=== PATIENT | female | born 1965 | race Caucasian/White ===

== ENCOUNTER 2016-07-24 13:02 | Observation (INO) | payer BC ==
[2016-07-26 10:31] VITALS: RESP 16
[2016-07-26 10:57] LABS: Glucose,Whole Blood 79 mg/dL (75-99)
[2016-07-26] MEDS ORDERED: NALOXONE 0.4 MG/ML 1 ML VIAL IV PRN (11:34)
[2016-07-26] MEDS ORDERED: MELATONIN 3 MG TABLET PO PRN (11:34)
[2016-07-26 11:40] LABS: Glucose,Whole Blood 65 mg/dL (75-99)
[2016-07-26] MEDS ORDERED: ACETAMINOPHEN TAB 325 MG TAB PO PRN ×2 (11:50→16:47)
[2016-07-26 12:22] LABS: ALT 32 U/L (9-52); AST 23 U/L (14-36); Alkaline Phosphatase 54 U/L (38-126); Anion Gap 8 mmol/L; Blood Urea Nitrogen 9 mg/dL (7-17); Calcium 8.5 mg/dL (8.4-10.2); Carbon Dioxide 19 mmol/L (22-30); Chloride 110 mmol/L (98-107); Glucose 80 mg/dL (74-99); Magnesium 1.9 mg/dL (1.6-2.3); Non-African American GFR(MDRD) >60 (>60 ml/min/1.73 sqM); Potassium 4.1 mmol/L (3.5-5.1); Sodium 137 mmol/L (137-145); Total Bilirubin 0.5 mg/dL (0.2-1.3); Total Protein 5.9 g/dL (6.3-8.2)
[2016-07-26] MEDS: ENOXAPARIN 40 MG/0.4 ML SYRINGE SQ SCH (12:28)
[2016-07-26 12:41] LABS: Glucose,Whole Blood 79 mg/dL (75-99)
[2016-07-26 12:47] LABS: Basophils % (A) 1 %; CH 32.4; CHCM 32.5; Eosinophils # (A) 0.1 k/uL (0-0.7); Eosinophils % (A) 2 %; HCT 37.2 % (34.0-46.0); HDW 2.58; HGB 12.2 gm/dL (11.4-16.0); Luc # (Auto) 0.12; Luc % (Auto) 3; Lymphocytes # (A) 1.3 k/uL (1.0-4.8); Lymphocytes % (A) 28 %; MCH 32.8 pg (25.0-35.0); MCHC 32.7 g/dL (31.0-37.0); MCV 100.2 fL (80.0-100.0); Mean Platelet Volume 6.4; Monocytes # (A) 0.3 k/uL (0-1.0); Monocytes % (A) 6 %; Neutrophils # (A) 2.7 k/uL (1.3-7.7); Neutrophils % (A) 61 %; RBC 3.71 m/uL (3.80-5.40); RDW 12.9 % (11.5-15.5); WBC 4.5 k/uL (3.8-10.6); WBC (Perox) 4.89
--- NOTE | 2016-07-26 13:11 | HP ---
DATE OF ADMISSION: 07/26/2016 PRESENTING COMPLAINT: Low sugars. HISTORY OF PRESENTING COMPLAINT: This is a pleasant 51-year-old patient whose family doctor is Dr. Potter of [facility]. Patient had initially had a lap band followed by gastric sleeve by Dr. Patterson about 4 years ago. Patient lost about 130 pounds. Patient used to ( ) what was through to be a dumping syndrome with about five to six loose bowel movements a day. Patient about 2 months ago was taken off of Prilosec and stools have actually become controlled. Patient for the last 3 months, patient has been running low sugars, down to sometimes even 30s and 40s. Patient diarrhea is well controlled. Patient does drink about 7 to 10 drinks a week. The patient was admitted to the hospital by enroute controller Dr. Jazzmine ( ) for close monitoring of her hypoglycemia. REVIEW OF SYSTEMS: CONSTITUTIONAL: None. HEENT: None. RESPIRATORY: None. CARDIOVASCULAR: None. GASTROINTESTINAL: As above. GENITOURINARY: None. MUSCULOSKELETAL: None. Dermatological: None. HEMATOLOGICAL: None. LYMPHATICS: None. PSYCHIATRY: None. NEUROLOGICAL: None. PAST MEDICAL HISTORY: Past history of GERD and TMJ. PAST SURGICAL HISTORY: Bladder surgery, cholecystectomy, hysterectomy, tonsillectomy, tubal ligation, lap band followed by gastric sleeve, bladder suspension. SOCIAL HISTORY: . Does not smoke. Drinks about 7 to 10 drinks a week. Works as an [employer] tech. FAMILY HISTORY: Diabetes and hypertension. HOME MEDICATIONS: 1. Omeprazole. 2. Mobic. 3. Tylenol No. 3. ALLERGIES: None. On examination, temperature 97.9, pulse 87, respiratory rate 16, blood pressure 123/79, pulse ox 98% on room air. GENERAL APPEARANCE: Average build, sitting up, comfortable. EYES: Pupils equal. Conjunctivae normal. HEENT: External appearance of nose and ears normal. Oral cavity normal. NECK: JVD not raised. Mass not palpable. RESPIRATORY: Effort normal. Lungs are clear. CARDIOVASCULAR: First and second sounds normal. No edema. ABDOMEN: Soft. Nontender. Liver and spleen not palpable. LYMPHATIC: No lymph nodes palpable in the neck or axilla. PSYCHIATRY: Alert and oriented x3. Mood and affect normal. NEUROLOGICAL: Pupils equal. Cranial nerves grossly intact. Power and sensation grossly intact. INVESTIGATIONS: Accu-Cheks first Accu-Chek was 79. ASSESSMENT: 1. 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 Patient initially having multiple stools a day, that posed dumping syndrome and ( ) hypoglycemia but since has stopped for the last 3 months. Alcohol will precipitate hypoglycemia. 2. Gastroesophageal reflux disease. PLAN: ( ) was consulted for the hypoglycemia. She is following through. Care was discussed with the patient. The patient ( ) hyperglycemia, so told to avoid alcohol.
[2016-07-26 14:14] LABS: Glucose,Whole Blood 76 mg/dL (75-99)
[2016-07-26 14:54] LABS: Glucose,Whole Blood 83 mg/dL (75-99)
[2016-07-26 15:52] LABS: Glucose,Whole Blood 81 mg/dL (75-99)
[2016-07-26 16:53] LABS: Glucose,Whole Blood 71 mg/dL (75-99)
[2016-07-26 17:45] LABS: Glucose,Whole Blood 76 mg/dL (75-99)
[2016-07-26 18:40] LABS: Glucose,Whole Blood 75 mg/dL (75-99)
[2016-07-26 19:41] LABS: Glucose,Whole Blood 71 mg/dL (75-99)
[2016-07-26 20:48] LABS: Glucose,Whole Blood 68 mg/dL (75-99)
[2016-07-26 21:28] LABS: Glucose,Whole Blood 76 mg/dL (75-99)
[2016-07-26 22:31] LABS: Glucose,Whole Blood 76 mg/dL (75-99)
[2016-07-26 23:41] LABS: Glucose,Whole Blood 72 mg/dL (75-99)
[2016-07-27 00:45] LABS: Glucose,Whole Blood 70 mg/dL (75-99)
[2016-07-27 01:42] LABS: Glucose,Whole Blood 73 mg/dL (75-99)
[2016-07-27 02:45] LABS: Glucose,Whole Blood 70 mg/dL (75-99)
[2016-07-27 03:47] LABS: Glucose,Whole Blood 62 mg/dL (75-99)
[2016-07-27 04:47] LABS: Glucose,Whole Blood 72 mg/dL (75-99)
[2016-07-27 05:58] LABS: Glucose,Whole Blood 64 mg/dL (75-99)
[2016-07-27 06:31] LABS: Glucose,Whole Blood 64 mg/dL (75-99)
[2016-07-27 07:44] LABS: Glucose,Whole Blood 70 mg/dL (75-99)
[2016-07-27 08:54] LABS: Glucose,Whole Blood 68 mg/dL (75-99)
[2016-07-27 09:52] LABS: Glucose,Whole Blood 58 mg/dL (75-99)
[2016-07-27] MEDS: ENOXAPARIN 40 MG/0.4 ML SYRINGE SQ SCH (10:42)
[2016-07-27 11:02] LABS: Glucose,Whole Blood 59 mg/dL (75-99)
[2016-07-27 12:21] LABS: Glucose,Whole Blood 63 mg/dL (75-99)
[2016-07-27 12:21] LABS: Glucose,Whole Blood 65 mg/dL (75-99)
[2016-07-27 12:21] LABS: Glucose,Whole Blood 61 mg/dL (75-99)
[2016-07-27 12:49] LABS: Glucose,Whole Blood 59 mg/dL (75-99)
[2016-07-27 13:56] LABS: Glucose,Whole Blood 65 mg/dL (75-99)
[2016-07-27 14:46] LABS: Glucose,Whole Blood 53 mg/dL (75-99)
[2016-07-27 15:24] VITALS: BP 150/77; PULSE 86; TEMP 98.2
[2016-07-27 15:25] LABS: Glucose,Whole Blood 70 mg/dL (75-99)
--- NOTE | 2016-07-28 09:44 | DS ---
DATE OF ADMISSION: 07/26/2016 DATE OF DISCHARGE: 07/27/2016 FINAL DIAGNOSES: 1. 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 2. Gastroesophageal reflux disease. HOSPITAL COURSE: This is a patient who is status post sleeve gastrectomy who initially had post dumping syndrome; however, stopping Prilosec diarrhea actually improved. Patient does drink alcohol. The patient admitted by Dr. Yanelis Dover from endocrinology for hypoglycemia. Patient did drop down to below 55 in the hospital. Bloods were drawn for proinsulin, insulin antibodies, C-peptide insulin level. On examination, lungs are clear. CARDIOVASCULAR: First and second sounds normal. DISCHARGE MEDICATIONS: 1. Tylenol No.3 one tablet daily p.r.n. 2. Xanax 0.5 p.o. q.h.s. p.r.n. Follow up with Dr. Yanelis Dover in one week. Patient told not to drink alcohol as that will precipitate hypoglycemia.
[2016-07-31 09:59] LABS: Mis test requested (Blood) Beta-Hydroxybutyrate
== END 2016-07-27 15:41 | disposition home or self-care (01) ==
LOC: 3SUR 07-26 10:11 → INTOOBSV 07-26 10:11
PROVIDERS: ADMIT Hospitalist; ATTEND Hospitalist
DX: E16.2 Hypoglycemia, unspecified (principal); K21.9 Gastro-esophageal reflux disease without esophagitis; R19.7 Diarrhea, unspecified; Z98.84 Bariatric surgery status; Z83.3 Family history of diabetes mellitus; Z82.49 Family history of ischemic heart disease and other diseases of the circulatory system
CPT/HCPCS: 82010; 84206; 80053; 83735; 82947; 85025; 83525; 84681; 86337; G0378 ×2; G0379; 80377

== ENCOUNTER → 2018-09-30 | Outpatient (CLI) | payer BC ==
[2018-09-30 15:53] VITALS: BP 134/71; PULSE 78; TEMP 98.3; BMI 26.9
--- NOTE | 2018-10-01 18:20 | P.HPBAR ---
Bariatric H&P - History & Physicial H&P Date: 09/30/18 History & Physicial: Visit/CC: dysphagia Patient initial contact: Initial weight: Initial weight in pounds: Height: 5 ft 4 in Initial BMI: Last weight: Current weight: 71.078 kg Current weight in pounds: 156.70 Current BMI: 26.9 [place] body weight (based on NIH guidelines): 54.431 kg Excess body weight loss: The patient is a 53 year-old F who presents for Bariatric Assessment.patient presents today for sleeve gastrectomy follow-up. She has complaints of dysphagia and She has not been seen for several years. Past Medical History Past Medical History: GERD/Reflux Additional Past Medical History / Comment(s): TMJ, ESOPOHOGUS TWISTING WITH DIFFICULTY SWALLOWING AFTER SURGERY History of Any Multi-Drug Resistant Organisms: None Reported Past Surgical History: Bladder Surgery, Cholecystectomy, Hysterectomy, Tonsillectomy, Tubal Ligation Additional Past Surgical History / Comment(s): LAP BAND, GASTRIC SLEEVE ,BLADDER SUSPENSION Past Anesthesia/Blood Transfusion Reactions: No Reported Reaction Past Psychological History: No Psychological Hx Reported Smoking Status: Never smoker Past Alcohol Use History: Occasional Additional Past Alcohol Use History / Comment(s): 10 DRINKS A WEEK BEER OR WINE Past Drug Use History: None Reported - Past Family History Mother Family Medical History: Cancer, Diabetes Mellitus, Hypertension Additional Family Medical History / Comment(s): Patient states her mother was dx with breast cancer at age 29, she is still surviving (as of 09/30/18) and is in her 70's now. Surgical - Exam Vital Signs Temp Pulse BP 98.3 F 78 134/71 09/30/18 15:06 09/30/18 15:06 09/30/18 15:06 - General well developed, well nourished, no distress - Eyes PERRL - Abdomen Abdomen: soft, non tender Bariatric Assessment & Plan Plan: status post sleeve ingastrectomyve. Patient's BMI is 27. She'll be scheduled for EGD and possible dilatation of any sleeve stricture.the patient is refusing esophagram currently. Bariatric Checklist Checklist: Plan: Checklist: EGD: 1. Hiatal hernia: 2. H. Pylori: HgbA1c: Vitamin D: Smoking: Never smoker Primary care physician referral: Dr. Leela Wilks ([facility] in [place] Psychiatry clearance: Cardiology clearance: Sleep study: Diet journal: VTE risk score: VTE risk level: Rehab needs at discharge:
== END ==
LOC: BARWHC3 14:56
PROVIDERS: ATTEND Surgery
DX: Z48.815 Encounter for surgical aftercare following surgery on the digestive system (principal); R13.10 Dysphagia, unspecified; Z98.84 Bariatric surgery status; Z90.49 Acquired absence of other specified parts of digestive tract; Z90.710 Acquired absence of both cervix and uterus; Z98.51 Tubal ligation status; Z90.3 Acquired absence of stomach [part of]
CPT/HCPCS: 99211

== ENCOUNTER 2018-10-11 08:19 | Day surgery (SDC) | payer BC ==
[2018-10-08 15:20] VITALS: BMI 27.1
[~2018-10-11 08:19] MED LIST: LACTATED RINGERS 1,000 ML IV SCH
[2018-10-11 08:42] VITALS: RESP 16; TEMP 99
[2018-10-11] MEDS ORDERED: LIDOCAINE 1% 20 ML VIAL (10MG/ML) FOR IV START INTRADERMA ONE (08:46)
[2018-10-11] MEDS ORDERED: LIDOCAINE 1% INJ 10MG/ML (20 ML MDV) ONE (10:03)
[2018-10-11] MEDS ORDERED: GLYCOPYRROLATE 0.2 MG/ML 2 ML VIAL ONE (10:03)
[2018-10-11] MEDS ORDERED: PROPOFOL 10 MG/ML 20 ML VIAL IV ONE (10:03)
--- NOTE | 2018-10-11 10:08 | P.GSHP ---
History of Present Illness H&P Date: 10/11/18 Chief Complaint: Dysphagia,. 's is a 53-year-old female who presents today for EGD. She's had issues with dysphagia and GERD. Patient previous history of sleeve gastrectomy. Past Medical History Past Medical History: GERD/Reflux Additional Past Medical History / Comment(s): TMJ, ESOPOHOGUS TWISTING WITH DIFFICULTY SWALLOWING AFTER SURGERY History of Any Multi-Drug Resistant Organisms: None Reported Past Surgical History: Bladder Surgery, Cholecystectomy, Hysterectomy, Tonsillectomy, Tubal Ligation Additional Past Surgical History / Comment(s): LAP BAND, GASTRIC SLEEVE ,BLADDER SUSPENSION Past Anesthesia/Blood Transfusion Reactions: No Reported Reaction Smoking Status: Never smoker - Past Family History Mother Family Medical History: Cancer, Diabetes Mellitus, Hypertension Additional Family Medical History / Comment(s): Patient states her mother was dx with breast cancer at age 29, she is still surviving (as of 09/30/18) and is in her 70's now. Medications and Allergies Home Medications Medication Instructions Recorded Confirmed Type Ibuprofen [Motrin] 400 - 600 mg PO Q6HR PRN 07/26/16 10/11/18 History Acetaminophen Tab [Tylenol Tab] 650 mg PO Q4H PRN 10/08/18 10/11/18 History Allergies Allergy/AdvReac Type Severity Reaction Status Date / Time ceftriaxone [From Rocephin] Allergy Anaphylaxis Verified 10/11/18 08:36 cephalexin [From Keflex] Allergy Anaphylaxis Verified 10/11/18 08:36 adhesive tape AdvReac Rash/Hives Verified 10/11/18 08:36 Surgical - Exam Vital Signs Temp Pulse Resp BP Pulse Ox 99.0 F 77 16 141/69 100 10/11/18 08:37 10/11/18 08:37 10/11/18 08:37 10/11/18 08:37 10/11/18 08:37 - General well developed, well nourished, no distress - Eyes PERRL - ENT normal pinna - Neck no masses - Respiratory normal expansion - Cardiovascular Rhythm: regular - Abdomen Abdomen: soft, non tender Assessment and Plan Assessment: GERD, dysphagia. We'll perform EGD.
--- NOTE | 2018-10-11 10:20 | P.OP ---
Date of Procedure: 10/11/18 Preoperative Diagnosis: Dysphagia Postoperative Diagnosis: Tortuous gastric sleeve Possible sleeve stricture Procedure(s) Performed: EGD Anesthesia: MAC Surgeon: Tunde Patterson Pathology: other (Antrum) Condition: stable Disposition: PACU Description of Procedure: Patient's placed on the endoscopy table in the lateral position. She received IV sedation. The gastroscope placed oropharynx passed in the esophagus and into the stomach. The patient appears gastric sleeve. The sleeve appeared to be to rtuous in the mid body of the sleeve. The scope was placed into the antrum and then into the pylorus. The first portion duodenum appeared normal. The scope was then brought back and in the mid body of the sleeve appeared to be a corkscrews/twist. There was a possible stricture dislocation. The 20 mm balloon was placed across the sleeve. Balloon was then deflated and withdrawn. The gastric scope was then placed back down through the sleeve. It appeared to be easier to place the gastroscope after the dilation. The scope was then withdrawn. There is no evidence of any injury to the stomach. Scope was then withdrawn from the patient. The distal and proximal esophagus appeared normal. Scope was withdrawn from patient.
[2018-10-11 10:47] VITALS: BP 124/80; PULSE 99
== END 2018-10-11 11:06 | disposition home or self-care (01) ==
LOC: ORWHC2ENDO 08:19
PROVIDERS: ATTEND Surgery
DX: R13.10 Dysphagia, unspecified (principal); K21.9 Gastro-esophageal reflux disease without esophagitis; K31.9 Disease of stomach and duodenum, unspecified; Z88.1 Allergy status to other antibiotic agents; Z83.3 Family history of diabetes mellitus; Z82.49 Family history of ischemic heart disease and other diseases of the circulatory system; Z80.3 Family history of malignant neoplasm of breast; Z79.1 Long term (current) use of non-steroidal anti-inflammatories (NSAID); Z79.899 Other long term (current) drug therapy; Z88.8 Allergy status to other drugs, medicaments and biological substances; Z98.84 Bariatric surgery status
CPT/HCPCS: 88305; 43239; 43249; J2001; J2704; C1726